=== PATIENT | female | born 1970 | race Caucasian/White ===

== ENCOUNTER 2017-01-04 03:29 | Observation (INO) | payer OTHER ==
[~2017-01-04] VITALS: Ht 149.9 cm; Wt 58.5 kg
[2017-01-04 04:22] LABS: CALCIUM 8.8 mg/dL (8.5-10.1); CARBON DIOXIDE 28.1 mmol/L (21-32); CHLORIDE SERUM 105 mmol/L (98-107); CREATININE SERUM 0.7 mg/dL (0.6-1.0); GFR1 > 60 mL/min; GLUCOSE SERUM 107 mg/dL (74-106); POTASSIUM SERUM 3.7 mmol/L (3.5-5.1); SODIUM SERUM 141 mmol/L (136-145)
[2017-01-04 04:23] LABS: BASOPHIL % 0.3 % (0-2); PLATELET COUNT 299 x10^3mcL (130-400); RED CELL DISTRIBUTION WIDTH 13.4 % (11.5-14.5)
[2017-01-04 04:26] LABS: ALBUMIN 3.7 g/dL (3.4-5.0); ALKALINE PHOSPHATASE 73 U/L (46-116); ALT/SGPT 16 U/L (14-59); AST/SGOT 20 U/L (15-37); BILIRUBIN TOTAL 0.41 mg/dL (0.20-1.00); LIPASE 135 IU/L (73-393); TOTAL PROTEIN, SERUM 7.2 g/dL (6.4-8.2)
[2017-01-04 04:33] LABS: CK-MB < 0.5 ng/mL (0-3.6); CREATINE KINASE 43 U/L (26-192)
[2017-01-04 07:41] LABS: MAGNESIUM 1.9 mg/dL (1.8-2.4)
[2017-01-04 10:24] VITALS: BP 111/58
[2017-01-04 14:05] VITALS: BP 111/61
[2017-01-04 15:54] LABS: UA SPECIFIC GRAVITY 1.015 (1.005-1.035); microscopic required? YES; urine erythrocyte 3+ (NEGATIVE)
[2017-01-04 18:00] VITALS: BP 113/56
[2017-01-04 21:38] VITALS: BP 109/60
[2017-01-05 06:26] VITALS: BP 116/63
[2017-01-05 06:29] LABS: CALCIUM 8.1 mg/dL (8.5-10.1); CARBON DIOXIDE 28.8 mmol/L (21-32); CHLORIDE SERUM 108 mmol/L (98-107); CREATININE SERUM 0.6 mg/dL (0.6-1.0); GFR1 > 60 mL/min; GLUCOSE SERUM 98 mg/dL (74-106); POTASSIUM SERUM 3.3 mmol/L (3.5-5.1); SODIUM SERUM 140 mmol/L (136-145)
[2017-01-05 07:39] LABS: BASOPHIL % 0.5 % (0-2); PLATELET COUNT 223 x10^3mcL (130-400); RED CELL DISTRIBUTION WIDTH 13.8 % (11.5-14.5)
[2017-01-05 10:08] VITALS: BP 108/63
[2017-01-05 14:43] VITALS: BP 149/98
[2017-01-05] MEDS ORDERED: GOOD SENSE OMEP20 MG PO (14:48)
[2017-01-05 17:53] VITALS: BP 106/63
[2017-01-05 18:22] VITALS: BP 106/63
== END 2017-01-05 18:58 | disposition home or self-care (01) | DRG 391 ==
LOC: ED 03:29 → DU 06:00
PROVIDERS: Emergency Medicine; ADMIT Family Medicine
DX: K29.00 Acute gastritis without bleeding (principal); N17.0 Acute kidney failure with tubular necrosis; K21.9 Gastro-esophageal reflux disease without esophagitis; Z68.26 Body mass index [BMI] 26.0-26.9, adult
CPT/HCPCS: 83880; G0378; J1885; J2270; J2405; J7030